=== PATIENT | female | born 1985 | race Caucasian/White ===

== ENCOUNTER 2022-02-18 08:54 | Emergency (ER) | payer OTHER ==
[~2022-02-18] VITALS: Ht 160 cm; Wt 99.8 kg
[2022-02-18 09:01] VITALS: BP 136/88
--- NOTE | 2022-02-18 09:19 | NUR ---
36 Y/O FEMALE STATES SHE HAS A HEADACHE AND IT COMES AND GOES, SHE STATES THE HEADACHE IS ON THE LEFT SIDE AND USUALLY FROM UNABLE TO SLEEP. SHE HAS HAD AN ON AND OFF HEADACHE FOR 4 MONTHS AND STATES SHE GAVE 5 MONTHS AGO.
[2022-02-18] MEDS ORDERED: ACET-2619 PO (09:34)
[2022-02-18] MEDS ORDERED: IBUP-2213 PO (09:34)
[2022-02-18] MEDS ORDERED: KETOROLAC 60 MG/2 ML VIAL IM ONE (09:35)
[2022-02-18] MEDS ORDERED: ACETAMINOPHEN EXTRA STRENGTH 500 MG TAB PO ONE (09:35)
[2022-02-18 10:00] VITALS: BP 136/88
--- NOTE | 2022-02-18 10:00 | NUR ---
PATIENT TOLLERATED MEDICATION ADMIN WELL, PATIENT EDUCATION REINFORCED PER CHRONIC HEADACHE
--- NOTE | 2022-02-18 10:01 | NUR ---
Patient discharged with v/s stable. Written and verbal after care instructions given and explained. Patient alert, oriented and verbalized understanding of instructions. Ambulatory with steady gait. All questions addressed prior to discharge. ID band removed. Patient advised to follow up with PMD. Rx of IBUPROFEN AND TYLENOL given. Patient educated on indication of medication including possible reaction and side effects. Opportunity to ask questions provided and answered.
== END 2022-02-18 10:00 | disposition home or self-care (01) ==
LOC: MED 08:54
DX: G44.229 Chronic tension-type headache, not intractable (principal); Z79.899 Other long term (current) drug therapy; Z98.890 Other specified postprocedural states
CPT/HCPCS: 96372; 99283; J1885

== ENCOUNTER 2022-05-23 10:34 | Emergency (ER) | payer OTHER ==
[~2022-05-23] VITALS: Ht 160 cm; Wt 99.8 kg
[~2022-05-23 10:34] MED LIST: ACET-2619 PO; IBUP-2213 PO
[2022-05-23 11:05] VITALS: BP 144/89
[2022-05-23] MEDS ORDERED: KETOROLAC 30 MG/ML VIAL IVP ONE (11:45)
[2022-05-23] MEDS ORDERED: NACL 0.9% 1,000 ML IV ONE (11:45)
[2022-05-23] MEDS ORDERED: MORPHINE SULFATE 4 MG/ML SYR IVP ONE (11:45)
--- NOTE | 2022-05-23 12:35 | NUR ---
36/F PRESENTS TO ED WITH C/O RIGHT SIDED FLANK PAIN, N/V X3 DAYS. PATIENT DENIES DIARRHEA OR URINARY SYMPTOMS, PATIENT DENIES FEVERS, CHILLS, REPORTS SHE HASN'T HAD A PERIOD IN TWO MONTHS AND REPORTS STARTING YESTERDAY.
[2022-05-23 12:50] LABS: APPEARANCE,URINE CLOUDY (CLEAR); BILIRUBIN,URINE NEGATIVE (NEGATIVE); BLOOD, URINE 3+ (NEGATIVE); COLOR,URINE RED (YELLOW); LEUKOCYTE ESTERASE ,URINE 1+ (NEGATIVE); NITRITE, URINE POSITIVE (NEGATIVE); UGLUCOSE TRACE (NEGATIVE)
[2022-05-23 13:01] LABS: ALBUMIN 3.6 g/dL (3.4-5.0); ANION GAP 14.5 (8-16); CARBON DIOXIDE 22.1 mmol/L (21-32); CREATININE 0.9 mg/dL (0.6-1.3); POTASSIUM 3.6 mmol/L (3.5-5.1); TOTAL BILIRUBIN 0.4 mg/dL (0.0-1.0)
[2022-05-23 13:07] LABS: RBC,URINE >20 (MANY) /HPF (0-5); WBC,URINE 16-25 (MOD) /HPF (0-5)
[2022-05-23 13:08] LABS: CALCIUM OXALATE CRYSTALS,UR None Seen /HPF (None Seen); COARSE GRANULAR CASTS,URINE None Seen /LPF (None Seen); FINE GRANULAR CASTS,URINE None Seen /LPF (None Seen); HYALINE CASTS, URINE None Seen /LPF (None Seen); OTHER CASTS, URINE None Seen /LPF (None Seen); OTHER CRYSTALS,URINE None Seen /HPF (None Seen); RED BLOOD CELL CASTS,URINE None Seen /LPF (None Seen); TRICHOMONAS,URINE None Seen /HPF (None Seen); TRIPLE PHOSPHATE CRYSTAL,UR None Seen /HPF (None Seen); URIC ACID CRYSTALS,URINE None Seen /HPF (None Seen); URINE AMORPHOUS URATE None Seen /HPF (None Seen); WAXY CASTS,URINE None Seen /LPF (None Seen); YEAST,URINE None Seen /HPF (None Seen)
[2022-05-23 13:14] LABS: BASOPHILS % (AUTO) 0.4 % (0.0-2.0); EOSINOPHILS # (AUTO) 0.1 K/uL (0-0.4); EOSINOPHILS % (AUTO) 1.7 % (0.0-4.0); HEMATOCRIT 40.5 % (36-48); HEMOGLOBIN 13.5 g/dL (12.0-16.0); LYMPHOCYTES # (AUTO) 0.9 K/uL (2.5-16.5); LYMPHOCYTES % (AUTO) 10.2 % (20.5-51.1); MEAN CORPUSCULAR HEMOGLOBIN 30 pg (27-31); MEAN CORPUSCULAR HGB CONC 33 g/dL (33-37); MEAN CORPUSCULAR VOLUME 90.2 fL (80-94); MONOCYTES # (AUTO) 0.4 K/uL (0.8-1.0); MONOCYTES % (AUTO) 4.8 % (1.7-9.3); NEUTROPHILS # (AUTO) 7.1 K/uL (1.8-7.7); NEUTROPHILS % (AUTO) 82.9 % (42.2-75.2); PLATELET COUNT (AUTO) 293 K/uL (140-450); RED BLOOD CELL COUNT(AUTO) 4.49 MIL/uL (4.20-5.40); RED CELL DISTRIBUTION WIDTH 13.4 % (11.6-13.7); WHITE BLOOD COUNT (AUTO) 8.5 K/uL (4.8-10.8)
[2022-05-23] MEDS ORDERED: cefTRIAXone 1,000 MG VIAL ONE (13:37)
--- NOTE | 2022-05-23 13:41 | NUR ---
PER DR. JAFFE ANTIBIOTICS OKAY TO BE GIVEN WITHOUT BLOOD CULTURES DRAWN.
--- NOTE | 2022-05-23 13:52 | NUR ---
PATIENT RESTING IN BED WITH EYES CLOSED, DENIES PAIN AT THIS TIME, WILL CONTINUE TO MONITOR.
[2022-05-23] MEDS ORDERED: CEPH-588 PO (14:05)
[2022-05-23] MEDS ORDERED: TRAM50TA1 PO (14:06)
--- NOTE | 2022-05-23 14:44 | NUR ---
IV removed, catheter intact and site benign. Applied folded 4x4 gauze and tape to stop bleeding.
[2022-05-23 14:45] VITALS: BP 118/69
--- NOTE | 2022-05-23 14:45 | NUR ---
Patient discharged with v/s stable. Written and verbal after care instructions about kidney stones given and explained. Patient alert, oriented and verbalized understanding of instructions. Ambulatory with steady gait. All questions addressed prior to discharge. ID band removed. Patient advised to follow up with PMD. Rx of Keflex, Tramadol given. Patient educated on indication of medication including possible reaction and side effects. Opportunity to ask questions provided and answered.
== END 2022-05-23 14:45 | disposition home or self-care (01) ==
LOC: MED 10:34
DX: N39.0 Urinary tract infection, site not specified (principal); N20.0 Calculus of kidney; Z90.49 Acquired absence of other specified parts of digestive tract
CPT/HCPCS: 36415; 74176; 80053; 81001; 81025; 84703; 85025; 87086; 96361; 96365; 96375; 99284; J0696; J1885; J2270; J7030

== ENCOUNTER 2022-05-24 22:58 | Emergency (ER) | payer OTHER ==
[~2022-05-24] VITALS: Ht 160 cm; Wt 95.3 kg
[~2022-05-24 22:58] MED LIST changes: +CEPH-588 PO; +TRAM50TA1 PO
[2022-05-24 23:20] VITALS: BP 135/87
--- NOTE | 2022-05-24 23:20 | NUR ---
to bed ambulatory
[2022-05-24] MEDS ORDERED: KETOROLAC 30 MG/ML VIAL IVP ONE (23:40)
[2022-05-24] MEDS ORDERED: NACL 0.9% 1,000 ML IV ONE (23:40)
--- NOTE | 2022-05-24 23:59 | NUR ---
36 Y/O FEMALE BIBS FROM HOME, C/O low back pain, for 3 days, seen in er yesterday with prescription of tramadol and keflex. NO TRAUMA, DEFORMITIES, BRUISING, REDNESS, OR SWELLING. A/OX4, AMBULATORY, UNLABORED BREATHING. NKA NO PMH
[2022-05-25] MEDS ORDERED: ONDANSETRON 4 MG/2 ML VIAL IVP ONE (00:50)
--- NOTE | 2022-05-25 00:52 | NUR ---
ER MD AT BEDSIDE EXAMINING PT
[2022-05-25] MEDS ORDERED: TAMS0.4C96 PO (01:21)
[2022-05-25] MEDS ORDERED: ACET-8386 PO (01:21)
[2022-05-25] MEDS ORDERED: IBUP-2213 PO (01:21)
[2022-05-25] MEDS ORDERED: ONDA8TAB87 PO (01:21)
[2022-05-25 01:54] VITALS: BP 130/84
--- NOTE | 2022-05-25 01:55 | NUR ---
Patient discharged with v/s stable. Written and verbal after care instructions given and explained. Patient alert, oriented and verbalized understanding of instructions. Ambulatory with steady gait. All questions addressed prior to discharge. ID band removed. Patient advised to follow up with PMD. Rx of norco 5-325, ibuprofen, zofran, and flomax given. Patient educated on indication of medication including possible reaction and side effects. Opportunity to ask questions provided and answered. A/OX4, VSS, UNLABORED BREATHING, AMBULATORY, AND CLAM DEMEANOR.
== END 2022-05-25 01:55 | disposition home or self-care (01) ==
LOC: MED 22:58
DX: N20.0 Calculus of kidney (principal); R11.2 Nausea with vomiting, unspecified; Z79.899 Other long term (current) drug therapy; Z98.890 Other specified postprocedural states
CPT/HCPCS: 81002; 81025; 96361; 96374; 96375; 99284; J1885; J2405; J7030

== ENCOUNTER 2023-03-04 15:16 | Emergency (ER) | payer OTHER ==
[~2023-03-04] VITALS: Ht 160 cm; Wt 102.7 kg
[~2023-03-04 15:16] MED LIST changes: +ACET-8905 PO; +ONDA8TAB87 PO; +TAMS0.4C96 PO; +TRAM-748 PO; -TRAM50TA1 PO
[2023-03-04 15:22] VITALS: BP 113/75
--- NOTE | 2023-03-04 15:40 | NUR ---
37YO FEMALE PT C/O INCREASED SHARP PELVIC/VAGINAL PAIN XTODAY. REPORTS SUDDEN INTIAL ONSET [id number]. 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 NOTES WHITE THICK VAGINAL DISCHARGE -ODOR. DENIES VAGINAL BLEEDING, N/V/D, FEVER,CHILLS OR TAKING MEDICATION. PT AAOX4, HOB POSITIONED PER COMFORT HX: DENIES NKA
--- NOTE | 2023-03-04 15:45 | NUR ---
lab at bedside
--- NOTE | 2023-03-04 15:59 | NUR ---
MD ESPINOZA AT BEDSIDE FOR EVALUATION
[2023-03-04 16:14] LABS: BASOPHILS # (AUTO) 0.1 K/uL (0.00-0.22); BASOPHILS % (AUTO) 0.9 % (0.0-2.0); EOSINOPHILS # (AUTO) 0.3 K/uL (0-0.4); EOSINOPHILS % (AUTO) 2.4 % (0.0-4.0); HEMATOCRIT 38.2 % (36-48); HEMOGLOBIN 13.3 g/dL (12.0-16.0); LYMPHOCYTES % (AUTO) 30.5 % (20.5-51.1); MEAN CORPUSCULAR HEMOGLOBIN 32 pg (27-31); MEAN CORPUSCULAR HGB CONC 35 g/dL (33-37); MEAN CORPUSCULAR VOLUME 90.6 fL (80-94); MONOCYTES # (AUTO) 0.5 K/uL (0.8-1.0); MONOCYTES % (AUTO) 4.1 % (1.7-9.3); NEUTROPHILS # (AUTO) 8.2 K/uL (1.8-7.7); NEUTROPHILS % (AUTO) 62.1 % (42.2-75.2); PLATELET COUNT (AUTO) 302 K/uL (140-450); RED BLOOD CELL COUNT(AUTO) 4.22 MIL/uL (4.20-5.40); RED CELL DISTRIBUTION WIDTH 12.6 % (11.6-13.7); WHITE BLOOD COUNT (AUTO) 13.1 K/uL (4.8-10.8)
[2023-03-04 16:21] LABS: APPEARANCE,URINE CLEAR (CLEAR); BILIRUBIN,URINE NEGATIVE (NEGATIVE); BLOOD, URINE 1+ (NEGATIVE); COLOR,URINE YELLOW (YELLOW); LEUKOCYTE ESTERASE ,URINE NEGATIVE (NEGATIVE); NITRITE, URINE NEGATIVE (NEGATIVE); UGLUCOSE TRACE (NEGATIVE)
[2023-03-04 16:35] LABS: ALBUMIN 3.7 g/dL (3.4-5.0); ANION GAP 23.4 (8-16); CARBON DIOXIDE 13.2 mmol/L (21-32); POTASSIUM 3.6 mmol/L (3.5-5.1); TOTAL BILIRUBIN 0.3 mg/dL (0.0-1.0)
[2023-03-04 16:35] LABS: WBC,URINE 0-5 /HPF (0-5)
--- NOTE | 2023-03-04 17:04 | NUR ---
pt taken to ct via w/c
--- NOTE | 2023-03-04 17:16 | NUR ---
pt brought back via w/c
[2023-03-04 17:30] VITALS: BP 121/75
--- NOTE | 2023-03-04 18:16 | NUR ---
Female [employer] Assistant accompanied female patient for Pelvic Exam.
[2023-03-04] MEDS ORDERED: KETOROLAC 30 MG/ML VIAL ONE (18:38)
[2023-03-04] MEDS ORDERED: KETOROLAC 30 MG/ML VIAL IVP ONE (18:40)
[2023-03-04] MEDS ORDERED: cefTRIAXone 500 MG in LIDOCAINE MPF 1% 1 ML IM ONE (19:00)
[2023-03-04] MEDS ORDERED: cefTRIAXone 500 MG VIAL ONE (19:06)
[2023-03-04] MEDS ORDERED: LIDOCAINE MPF 1% 5 ML ONE (19:07)
[2023-03-04] MEDS ORDERED: METR-435 PO (19:16)
[2023-03-04] MEDS ORDERED: DOXY-690 PO (19:16)
--- NOTE | 2023-03-04 19:36 | NUR ---
Patient discharged with v/s stable. Written and verbal after care instructions given and explained. Patient alert, oriented and verbalized understanding of instructions. Ambulatory with steady gait. All questions addressed prior to discharge. ID band removed. Patient advised to follow up with PMD. Rx of VIBRAMYCIN AND METRONIDAZOLE given. Opportunity to ask questions provided and answered.
--- NOTE | 2023-03-04 19:50 | NUR ---
The patient's care was reviewed and supervised by Surekha Ordonez RN.
== END 2023-03-04 19:36 | disposition home or self-care (01) ==
LOC: MED 15:16
DX: N76.0 Acute vaginitis (principal); B96.89 Other specified bacterial agents as the cause of diseases classified elsewhere; R73.9 Hyperglycemia, unspecified; Z79.899 Other long term (current) drug therapy
CPT/HCPCS: 36415; 74177; 80053; 81001; 81025; 83690; 85025; 87070; 87086; 87110; 87210; 87299; 87491; 96372; 96374; 99285; J0696; J1885; J2001; Q9967

== ENCOUNTER 2024-03-14 00:12 | Emergency (ER) | payer OTHER ==
[~2024-03-14] VITALS: Ht 160 cm; Wt 96.6 kg
[~2024-03-14 00:12] MED LIST changes: +DOXY-690 PO; +METR-435 PO
[2024-03-14 00:35] VITALS: BP 120/80; PULSE 90; RESP 17; TEMP 97.7; O2SAT 98
[2024-03-14 01:04] VITALS: BP 120/80; PULSE 90; RESP 17; TEMP 97.7; O2SAT 98
[2024-03-14] MEDS: FAMOTIDINE 20 MG TAB PO ONE (01:36)
[2024-03-14] MEDS: LORATADINE 10 MG TAB PO ONE (01:36)
[2024-03-14] MEDS ORDERED: LORA10TA19 PO (02:59)
[2024-03-14] MEDS ORDERED: FAMO-90 PO (02:59)
== END 2024-03-14 03:06 | disposition home or self-care (01) ==
LOC: MED 00:12
DX: L50.9 Urticaria, unspecified (principal); E11.9 Type 2 diabetes mellitus without complications; Z79.4 Long term (current) use of insulin; Z79.899 Other long term (current) drug therapy
CPT/HCPCS: 99283

== ENCOUNTER 2024-08-30 15:02 | Emergency (ER) | payer OTHER ==
[~2024-08-30] VITALS: Ht 160 cm; Wt 96.2 kg
[~2024-08-30 15:02] MED LIST changes: +FAMO-90 PO; +LORA10TA19 PO
[2024-08-30 15:24] VITALS: BP 152/92; PULSE 79; RESP 16; TEMP 97.4; O2SAT 99
[2024-08-30] MEDS: KETOROLAC 30 MG/ML VIAL IM ONE (15:58)
[2024-08-30] MEDS ORDERED: CAPS1ADH5 TP (16:16)
[2024-08-30] MEDS ORDERED: METH-1681 PO (16:16)
[2024-08-30] MEDS ORDERED: NAPR-1704 PO (16:16)
== END 2024-08-30 16:22 | disposition home or self-care (01) ==
LOC: MED 15:02
DX: S46.912A Strain of unspecified muscle, fascia and tendon at shoulder and upper arm level, left arm, initial encounter (principal); M77.8 Other enthesopathies, not elsewhere classified; E11.9 Type 2 diabetes mellitus without complications; Z90.49 Acquired absence of other specified parts of digestive tract; Z90.710 Acquired absence of both cervix and uterus; Z98.890 Other specified postprocedural states; Z79.899 Other long term (current) drug therapy; X50.9XXA Other and unspecified overexertion or strenuous movements or postures, initial encounter; Y93.89 Activity, other specified; Y92.89 Other specified places as the place of occurrence of the external cause; Y99.8 Other external cause status
CPT/HCPCS: 73030; 81025; 96372; 99283; J1885; Q0092